=== PATIENT | female | born 1960 | race Caucasian/White ===

== ENCOUNTER 2025-03-12 11:35 | Emergency (ER) | payer MEDICARE, OTHER ==
[2025-03-12] MEDS: HYDROcodone/APAP 10-325MG 1 EACH TAB PO ONE (12:35)
--- NOTE | 2025-03-12 13:10 | XR ---
EXAMINATION TYPE: XR shoulder complete LT DATE OF EXAM: 03/12/2025 12:51 PM COMPARISON: None CLINICAL INDICATION: Female, 64 years old with history of pain; PHH, pain TECHNIQUE: 3 views FINDINGS: Image shows reverse left total shoulder arthroplasty. Alignment appears satisfactory. No vicki peripr osthetic fracture or significant loosening is appreciated. There is a large 4.1 x 1.0 cm bone fragment along the lateral margin of the left shoulder joint. Ther e is an additional 2.4 x 1.2 cm bone fragment along the medial aspect of the shoulder joint located j ust below the coracoid process. We note old left-sided rib fracture deformities on the [place] view. There is background increased in terstitial density left lung. Mild degenerative change suspected AC joint. IMPRESSION: 1. Correlate with appearance of the shoulder on post operative radiographs. There is a 4.1 x 1.0 cm b one fragment lateral to the reverse shoulder arthroplasty joint, possible heterotopic ossification or sequela of surgical technique. 2. An additional 2.4 x 1.2 cm bone fragment along the medial aspect of the joint is located just belo w the coracoid. Etiology unclear. The possibility of an avulsion fracture of the coracoid process is a consideration. Again, correlate with immediate postoperative radiographs. 3. Interstitial changes throughout the visualized left lung, possible pulmonary vascular congestion. Bronchitis and chronic asthma are some other considerations. 4. Old left-sided rib fracture deformities. [facility], , 03/12/2025 1:08 PM
[2025-03-12] MEDS: MORPHINE SULFATE 4 MG/ML SYRINGE IM STA (15:23)
--- NOTE | 2025-03-12 15:34 | CT ---
EXAMINATION TYPE: CT shoulder LT wo con DATE OF EXAM: 03/12/2025 COMPARISON: None CLINICAL INDICATION: Female, 64 years old with history of pain. recent surgery; PHH, Pt comes to w ith complaint of left shoulder pain after lifting something heavy and felt a pop. Pt did have shoulde r surgery in November. CT DLP: 327.4 mGycm Automated exposure control for dose reduction was used. FINDINGS: There is a reverse left shoulder prosthesis which appears to be in satisfactory orientation There is a well-corticated calcification in the lateral soft tissues which suggests heterotopic bone formation. There is focal calcification inferior to the coracoid process which has an irregular margin along its superior aspect and the possibility of a acute fracture cannot be excluded. Donor site is not identi fied with certainty that the coracoid process appears intact. IMPRESSION: 1. REMARKABLE LEFT REVERSE SHOULDER PROSTHESIS. 2. FOCAL BONE DENSITY IN THE SOFT TISSUES INFERIOR TO THE ACROMION AND THE POSSIBILITY OF AN ACUTE FR ACTURE FRAGMENT CANNOT BE EXCLUDED DESPITE THE LACK OF EVIDENCE FOR A DONOR SITE. LATERAL SOFT TISSUE CALCIFICATION APPEARS WELL CORTICATED AND IS MOST LIKELY HETEROTOPIC BONE FORMATION. [facility], , 03/12/2025 3:32 PM
--- NOTE | 2025-03-12 15:54 | ED ---
General Adult HPI - General Chief complaint: Extremity Injury, Upper Stated complaint: post-op L shoulder pain Time Seen by Provider: 03/12/25 12:15 Source: patient, RN notes reviewed, old records reviewed Mode of arrival: ambulatory Limitations: no limitations - History of Present Illness Initial comments: Patient is a 64-year-old female presents emergency department complaining of left shoulder pain. Recently had reverse left shoulder replacement done at [place] [facility] by Dr. Schaefer. Has been progressing well but today she went to cook pickled meat garbage and just lifted it when she felt something pop in her left shoulder and she had severe pain afterwards. Is on [place] 10 tablets but the pain specialist and pain contract. Denies falling or injuring self otherwise. Decreased range of motion of left shoulder secondary to pain. Presents for further evaluation at this time. - Related Data Allergies Allergy/AdvReac Type Severity Reaction Status Date / Time No Known Allergies Allergy Verified 03/12/25 11:45 Review of Systems ROS Statement: Those systems with pertinent positive or pertinent negative responses have been documented in the HPI. Review of Systems: CONST: Denies fever EYES: Denies blurry vision ENT: Denies nasal congestion C/V: Denies Chest pain RESP: Denies shortness of breath GI: Denies abdominal pain : Denies dysuria SKIN: Denies rash. MSK: Endorses left shoulder pain NEURO: Denies headache ROS Other: All systems not noted in ROS Statement are negative. Past Medical History Past Medical History: Heart Failure, COPD, Myocardial Infarction (ME) History of Any Multi-Drug Resistant Organisms: None Reported Additional Past Surgical History / Comment(s): left shoulder surgery Past Psychological History: No Psychological Hx Reported Smoking Status: Current every day smoker Past Alcohol Use History: None Reported Past Drug Use History: None Reported General Exam - General Exam Comments Initial Comments: General: Appears in moderate distress secondary to left shoulder pain. HEAD: Normal with no signs of head trauma. EYES: EOMI. ENT: Hearing grossly intact. RESPIRATORY: No respiratory distress. C/V: Regular rate and rhythm. ABD: Abdomen is nondistended. EXT: No obvious deformity. Tenderness to palpation of the left shoulder, mostly in the anterior aspect. Decreased range of motion left shoulder secondary to pain. Neurovascular intact throughout the left upper extremity. No obvious step-off or deformity palpated. SKIN: No rashes or lesions observed on exposed skin. NEURO: Alert and oriented. Weakness in left upper extremity secondary to pain. Limitations: no limitations Course Vital Signs 03/12/25 03/12/25 11:42 15:58 Temperature 97.9 F 98.1 F Pulse Rate 86 78 Respiratory 18 20 Rate Blood Pressure 134/79 140/90 O2 Sat by Pulse 94 L 99 Oximetry Medical Decision Making - Medical Decision Making Was pt. sent in by a medical professional or institution (, PA, MACHINE HELPER, urgent care, hospital, or skilled nursing...) When possible be specific @ -No Did you speak to anyone other than the patient for history (EMS, parent, family, police, friend...)? What history was obtained from this source @ -No Did you review nursing and triage notes (agree or disagree)? Why? @ -I reviewed and agree with nursing and triage notes Were old charts reviewed (outside hosp., previous admission, EMS record, old EKG, old radiological studies, urgent care reports/EKG's, skilled nursing records)? Report findings @ -No old charts were reviewed Differential Diagnosis (chest pain, altered mental status, abdominal pain women, abdominal pain men, vaginal bleeding, weakness, fever, dyspnea, syncope, headache, dizziness, GI bleed, back pain, seizure, CVA, palpatations, mental health, musculoskeletal)? @ -Differential Musculoskeletal Muscular strain, contusion, ligament sprain, fracture, arthritis, septic arthritis, bursitis, cellulitis, muscle spasm, nerve compression, DVT, arterial occlusion, herpes zoster, electrolyte abnormality, tumor.... This is not meant to be in all inclusive list EKG interpreted by me (3pts min.). @ -None none X-rays interpreted by me (1pt min.). @ -Left shoulder x-ray remarkable for possible chronic bony island or heterotopic bone fragment without any obvious acute traumatic injury or fracture. No prior postop radiograph present for comparison. CT interpreted by me (1pt min.). @ -CT of the left shoulder reviewed redemonstrates the bony island of unknown chronicity without any obvious source of fracture at this time. Cannot definitively be excluded. Likely heterotopic bone formation. U/S interpreted by me (1pt. min.). @ -None done What testing was considered but not performed or refused? (CT, X-rays, U/S, labs)? Why? @ -None What meds were considered but not given or refused? Why? @ -None Did you discuss the management of the patient with other professionals (professionals i.e. , PA, MACHINE HELPER, lab, RT, psych nurse, social media content manager, clinical research monitor, teacher, promotion officer, family independence case manager)? Give summary @ -No Was smoking cessation discussed for >3mins.? @ -No Was critical care preformed (if so, how long)? @ -No Were there social determinants of health that impacted care today? How? (Homelessness, low income, unemployed, alcoholism, drug addiction, transportation, low edu. Level, literacy, decrease access to med. care, senior care, rehab)? @ -No Was there de-escalation of care discussed even if they declined (Discuss DNR or withdrawal of care, Hospice)? DNR status @ -No What co-morbidities impacted this encounter? (DM, HTN, Smoking, COPD, CAD, Cancer, CVA, ARF, Chemo, Hep., AIDS, mental health diagnosis, sleep apnea, morbid obesity)? @ -None Was patient admitted / discharged? Hospital course, mention meds given and route, prescriptions, significant lab abnormalities, going to OR and other pertinent info. @ -Presents with left shoulder pain after lifting garbage. Had recent left shoulder replacement. We will obtain x-ray. Given analgesic medications. No obvious deformity appreciated. She was in agreement this plan. Vitals are within acceptable limits. X-ray showed possible heterotopic bone formation versus fracture fragment. I discussed with the patient she believes this was on previous x-rays but cannot recall. We do not have prior imaging for comparison. Unknown if this is a fracture fragment and I discussed with the patient we both agreed to obtain CT imaging. Therefore we will obtain CT imaging. She was in agreement this plan. CT imaging redemonstrates the same area with no other obvious fracture. I discussed with the patient. She does feel complex she has a chronic history of having this fracture fragment but is uncertain. I did discuss with her there is no obvious fracture or injury but rather just this bony island present in the left shoulder. Therefore patient was placed in a sling and will be discharged home with a disc with her imaging results to follow-up with her orthopedic surgeon in the next 1 to 3 days. She was in agreement this plan. I instructed the patient to follow up with their PCP in the next 1-3 days. I explained that the patient should return to the emergency department if they experience any worsening symptoms. Strict return precautions were discussed with the patient. The patient expressed understanding of these instructions. I answered all questions that the patient had. The patient was discharged home in good condition with their prescriptions and follow up information. Undiagnosed new problem with uncertain prognosis? @ -No Drug Therapy requiring intensive monitoring for toxicity (Heparin, Nitro, Insulin, Cardizem)? @ -No Were any procedures done? @ -No Diagnosis/symptom? 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 @ -Acute Uncomplicated (without systemic symptoms) or Complicated (systemic symptoms)? @ -uncomplicated Side effects of treatment? @ -No Exacerbation, Progression, or Severe Exacerbation? @ -No Poses a threat to life or bodily function? How? (Chest pain, [place], ME, pneumonia, PE, COPD, DKA, ARF, appy, cholecystitis, CVA, Diverticulitis, Homicidal, Suicidal, threat to staff... and all critical care pts) @ -Unlikely at this time Disposition Clinical Impression: Left shoulder pain, Sprain of left shoulder Narrative: floating bone fragment of left shoulder, possibly chronic Disposition: HOME SELF-CARE Condition: Stable Additional Instructions: Your imaging today revealed a floating bone fragment without any obvious source. Cannot definitively rule out fracture at this time but no obvious fracture seen other than the floating bone fragment. This may be chronic but should compare with images with your orthopedic surgeon as we discussed. Use Tylenol 3 as needed for pain control. Follow-up with your orthopedic surgeon outpatient. Follow-up within the next 1 to 3 days. Return if any worsening symptoms. Is patient prescribed a controlled substance at d/c from ED?: No Referrals: Nonstaff,Physician [Primary Care Provider] - 1-2 days Time of Disposition: 15:45
[2025-03-12 15:59] VITALS: BP 140/90; PULSE 78; RESP 20; TEMP 98.1
[2025-03-12] MEDS: ACET/COD 300 MG/30 MG STARTER PACK 6 TAB BTL PO STA (16:05)
== END 2025-03-12 17:03 | disposition home or self-care (01) ==
LOC: EC 11:35
DX: S43.402A Unspecified sprain of left shoulder joint, initial encounter (principal); F17.200 Nicotine dependence, unspecified, uncomplicated; X50.0XXA Overexertion from strenuous movement or load, initial encounter
CPT/HCPCS: 73030; 73200; 99284; 96372; J2270